=== PATIENT | female | born 1995 | race Hispanic/Latino ===

== ENCOUNTER 2018-06-15 04:05 | Emergency (ER) | payer OTHER ==
[2018-06-15] MEDS ORDERED: PREDNISONE 20 MG TABLET ONE (05:20)
[2018-06-15] MEDS ORDERED: ALBUTEROL SULFATE 0.083% 2.5 MG/3 ML INH IH ONE (05:22)
== END 2018-06-15 06:28 | disposition home or self-care (01) ==
LOC: EDH 04:05
DX: R06.00 Dyspnea, unspecified (principal); R07.89 Other chest pain; M54.9 Dorsalgia, unspecified
CPT/HCPCS: 71046; 93005; 94640

== ENCOUNTER 2019-11-13 11:58 | Emergency (ER) | payer MEDICAID | END 2019-11-13 13:05 | disposition home or self-care (01) | LOC: EDH 11:58 | DX: O23.42 Unspecified infection of urinary tract in pregnancy, second trimester (principal); Z3A.24 24 weeks gestation of pregnancy ==

== ENCOUNTER 2020-02-02 18:35 | Emergency (ER) | payer MEDICAID | END 2020-02-02 19:54 | disposition home or self-care (01) | LOC: EDH 18:35 | DX: O26.893 Other specified pregnancy related conditions, third trimester (principal); H66.002 Acute suppurative otitis media without spontaneous rupture of ear drum, left ear; Z3A.34 34 weeks gestation of pregnancy ==

== ENCOUNTER → 2020-02-11 | Outpatient (CLI) | payer MEDICAID | END | disposition home or self-care (01) | LOC: SHCH 08:59 | PROVIDERS: ATTEND Internal Medicine Cardiovascular Disease | DX: I07.1 Rheumatic tricuspid insufficiency (principal) | CPT/HCPCS: 93306 ==

== ENCOUNTER 2020-09-16 18:34 | Emergency (ER) | payer MEDICAID ==
[2020-09-16] MEDS ORDERED: ACETAMINOPHEN-CODEINE 300/30MG TAB ONE (18:54)
== END 2020-09-16 20:02 | disposition home or self-care (01) ==
LOC: EDH 18:34
DX: B34.9 Viral infection, unspecified (principal)
CPT/HCPCS: 71045